=== PATIENT | male | born 1985 | race Two or more races ===

== ENCOUNTER 2020-05-09 11:55 | Emergency (ER) | payer MEDICAID ==
[~2020-05-09] VITALS: Ht 167.6 cm; Wt 117.9 kg
[2020-05-09] MEDS ORDERED: LIDOCAINE 1%-EPI 1:100,000 20 ML VIAL TP ONE (12:30)
[2020-05-09] MEDS ORDERED: TDAP DIPH,PERTUSS,TET VAC/PF 0.5 ML DISP.SYRIN IM ONE ×2 (12:30→12:49)
[2020-05-09] MEDS ORDERED: NEOMY/BACITRA/POLYMYXIN B OINT UD PACKET TP ONE (12:49)
[2020-05-09] MEDS ORDERED: SUCRALFATE 1 G/10 ML LIQUID UDC GT SCH (13:00)
[2020-05-09] MEDS ORDERED: CEphaleXIN 500 MG CAPSULE PO ONE (13:00)
[2020-05-09] MEDS ORDERED: CEphaleXIN 500 MG CAPSULE ONE (13:02)
--- NOTE | 2020-05-09 13:05 | NUR ---
DR FLORES AT BEDSIDE FOR WOUND CARE. WOUND WAS IRRIGATED BY ME. MEDS GIVEN ORDERED. STERILE DRESSING APPLIED BY DR FLORES. DC, RX AND FOLLOW UP ISNTRUCTIONS GIVEN AND EXPLAINED TO PATIENT WHO STATES HE UNDERSTANDS ALL INSTRUCTIONS.
== END 2020-05-09 13:06 | disposition home or self-care (01) ==
LOC: ER 11:55
DX: S81.822A Laceration with foreign body, left lower leg, initial encounter (principal); W29.3XXA Contact with powered garden and outdoor hand tools and machinery, initial encounter; Y92.69 Other specified industrial and construction area as the place of occurrence of the external cause; Y99.0 Civilian activity done for income or pay
CPT/HCPCS: 12034; 90471; 90715; 99284; J3490; A4217; A4663

== ENCOUNTER 2020-05-11 08:15 | Emergency (ER) | payer MEDICAID ==
[~2020-05-11] VITALS: Ht 167.6 cm; Wt 113.4 kg
--- NOTE | 2020-05-11 08:30 | NUR ---
Dr. David at bedside for MSE
--- NOTE | 2020-05-11 08:40 | NUR ---
Non adhesive gauze applied to LLE. Patient tolerated well
--- NOTE | 2020-05-11 08:51 | NUR ---
Patient discharged to home in stable condition. Written and verbal after care instructions given. Patient verbalizes understanding of instructions. Stressed follow up or return to ER for worsening s/s. Patient ambulating with steady gait. NAD noted
[2020-05-11 08:52] VITALS: BP 131/79
== END 2020-05-11 08:51 | disposition home or self-care (01) ==
LOC: ER 08:17
DX: S81.812D Laceration without foreign body, left lower leg, subsequent encounter (principal); W45.8XXD Other foreign body or object entering through skin, subsequent encounter
CPT/HCPCS: A4663

== ENCOUNTER 2020-05-19 09:02 | Emergency (ER) | payer MEDICAID ==
[~2020-05-19] VITALS: Ht 167.6 cm; Wt 113.4 kg
--- NOTE | 2020-05-19 09:11 | NUR ---
Dr David at the bedside for staple removal of RT calf.
--- NOTE | 2020-05-19 09:18 | NUR ---
Cleaned stable site and Kirlex applied, no S/S infection noted.
[2020-05-19 09:21] VITALS: BP 145/89
--- NOTE | 2020-05-19 09:23 | NUR ---
Patient discharged to home in stable condition. Written and verbal after care instructions given. Patient verbalizes understanding of instructions. Stressed follow up or return to ER for worsening s/s.
== END 2020-05-19 09:23 | disposition home or self-care (01) ==
LOC: ER 09:02
DX: S81.811D Laceration without foreign body, right lower leg, subsequent encounter (principal); X58.XXXD Exposure to other specified factors, subsequent encounter
CPT/HCPCS: A4663

== ENCOUNTER 2020-06-02 14:53 | Emergency (ER) | payer MEDICAID ==
[~2020-06-02] VITALS: Ht 167.6 cm; Wt 113.4 kg
--- NOTE | 2020-06-02 15:08 | NUR ---
Dr. Vaz at bedside for MSE
[2020-06-02] MEDS ORDERED: CLINDAMYCIN HCL 150 MG CAPSULE PO ONE (15:15)
[2020-06-02] MEDS ORDERED: CLINDAMYCIN HCL 150 MG CAPSULE ONE (15:21)
[2020-06-02] MEDS ORDERED: NEOMY/BACITRA/POLYMYXIN B OINT UD PACKET TP ONE ×2 (15:25→15:30)
[2020-06-02 15:37] VITALS: BP 142/83
== END 2020-06-02 15:35 | disposition home or self-care (01) ==
LOC: ER 14:53
DX: T81.33XA Disruption of traumatic injury wound repair, initial encounter (principal); T81.41XA Infection following a procedure, superficial incisional surgical site, initial encounter
CPT/HCPCS: A4663

== ENCOUNTER 2020-06-04 11:59 | Emergency (ER) | payer MEDICAID ==
[~2020-06-04] VITALS: Ht 167.6 cm; Wt 113.4 kg
--- NOTE | 2020-06-04 12:13 | NUR ---
Patient discharged to home in stable condition & brisk steady gait. Written and verbal after care instructions given to patient. Patient verbalized understanding & compliance of instructions. Stressed follow up with his primary doctor or return to ER for worsening s/s.
== END 2020-06-04 12:16 | disposition home or self-care (01) ==
LOC: ER 11:59
DX: T81.33XD Disruption of traumatic injury wound repair, subsequent encounter (principal)
CPT/HCPCS: A4217; A4663